=== PATIENT | female | born 1975 | race Caucasian/White ===

== ENCOUNTER 2016-09-02 16:10 | Emergency (ER) | payer BC ==
[2016-09-02 16:22] VITALS: BP 131/85
--- NOTE | 2016-09-02 16:39 | UC ---
Respiratory Complaint HPI - History of Current Complaint Chief Complaint: UCGeneralIllness Stated Complaint: COUGH Time Seen by Provider: 09/02/16 16:29 Hx Obtained From: Patient Hx Last Menstrual Period: 08/31/16 Onset/Duration: Sudden Onset - this morning., Still Present Timing: Constant Severity Initially: Mild Severity Currently: Moderate Character: Cough: Nonproductive Aggravating Factors: Nothing Alleviating Factors: Nothing Associated Signs And Symptoms: Positive: URI, Nasal Congestion. Negative: Dyspnea, Fever, Chills Related History: Seasonal Allergies - in the summer. - Allergies/Home Medications Allergies/Adverse Reactions: Allergies Allergy/AdvReac Type Severity Reaction Status Date / Time Bee Venom Allergy Severe Airway Verified 09/02/16 16:22 Obstruction Penicillins Allergy Mild Rash Verified 09/02/16 16:22 Procaine [From Novocain] Allergy Rash Verified 09/02/16 16:22 Home Medications: Home Medications Menthol (Mouth-Throat) [Ludens Throat Drops] 1 mg MT DAILY 09/02/16 [History Confirmed 09/02/16] PMH/Surg Hx/FS Hx/Imm Hx Endocrine History Of: Reports: Diabetes - CONTROLLED, Thyroid Disease - hypo Respiratory History Of: Reports: Asthma, Bronchitis - Surgical History Surgical History: Yes Surgery Procedure, Year, and Place: tubal ligation. LEFT EYE SX AGE 5 YR. EAR TUBES - Family History Known Family History: Positive: Hypertension, Respiratory Disease - Social History Occupation: Employed Full-time - bus aid Lives: With Family Alcohol Use: None Substance Use Type: None Smoking Status (MU): Never Smoked Tobacco - Immunization History Most Recent Influenza Vaccination: not yet Review of Systems ENT: Sore Throat Respiratory: Cough All Other Systems Reviewed And Are Negative: Yes Physical Exam Triage Information Reviewed: Yes Appearance: No Pain Distress, Well-Nourished, Ill-Appearing Vital Signs: Initial Vital Signs Temp 98.1 F 09/02/16 16:18 Pulse 78 09/02/16 16:18 Resp 16 09/02/16 16:18 BP 131/85 09/02/16 16:18 Pulse Ox 100 09/02/16 16:18 Vital Signs Reviewed: Yes ENT: Positive: Pharynx normal, Nasal congestion, TMs normal Dental: Positive: Gross Decay/Caries @ Neck exam: Normal Respiratory: Positive: Lungs clear Cardiovascular: Positive: RRR, No Murmur Musculoskeletal Exam: Normal Neurological Exam: Normal Psychological Exam: Normal Skin Exam: Normal UC Diagnostic Evaluation - Laboratory O2 Sat by Pulse Oximetry: 100 Respiratory Course/Dx - Differential Dx/Diagnosis Differential Diagnosis/HQI/PQRI: Asthma, Lower Resp Infection, Sinusitis Provider Diagnoses: Acute URI Discharge - Discharge Plan Condition: Stable Disposition: HOME Patient Education Materials: Upper Respiratory Infection (ED), Viral Syndrome ( ED) Additional Instructions: I like Cold-eeze zinc lozenges to help with cold symptoms, especially when started in the first 48 hours.
== END 2016-09-02 17:02 | disposition home or self-care (01) ==
LOC: UCCORT 16:10
DX: J06.9 Acute upper respiratory infection, unspecified (principal); R09.81 Nasal congestion; E03.9 Hypothyroidism, unspecified; J45.909 Unspecified asthma, uncomplicated; Z88.0 Allergy status to penicillin; Z88.5 Allergy status to narcotic agent; Z91.030 Bee allergy status
CPT/HCPCS: 99211; G0463

== ENCOUNTER 2017-05-18 19:21 | Emergency (ER) | payer BC, MEDICAID ==
--- NOTE | 2017-05-18 19:23 | UC ---
UC General HPI - HPI Summary HPI Summary: 42 YEAR OLD FEMALE PRESENTS FOR A REFILL ON HER METFORMIN. THE LAST TIME SHE HAD HER METFORMIN FILLED WAS 2012 AT [facility]. - History of Current Complaint Stated Complaint: BLOOD SUGAR Time Seen by Provider: 05/18/17 19:22 Hx Obtained From: Patient Hx Last Menstrual Period: 08/31/16 Onset/Duration: Sudden Onset Timing: Constant Onset Severity: Moderate Current Severity: Moderate - Allergy/Home Medications Allergies/Adverse Reactions: Allergies Allergy/AdvReac Type Severity Reaction Status Date / Time Bee Venom Allergy Severe Airway Verified 05/18/17 19:39 Obstruction Penicillins Allergy Mild Rash Verified 05/18/17 19:39 Procaine [From Novocain] Allergy Rash Verified 05/18/17 19:39 PMH/Surg Hx/FS Hx/Imm Hx Previously Healthy: Yes Endocrine History: Diabetes - Surgical History Surgical History: Yes Surgery Procedure, Year, and Place: tubal ligation. LEFT EYE SX AGE 5 YR. EAR TUBES - Family History Known Family History: Positive: Hypertension, Respiratory Disease - Social History Alcohol Use: None Substance Use Type: None Smoking Status (MU): Never Smoked Tobacco - Immunization History Most Recent Influenza Vaccination: not yet Review of Systems Constitutional: Negative Skin: Negative Eyes: Negative ENT: Negative Respiratory: Negative Cardiovascular: Negative Gastrointestinal: Negative Genitourinary: Negative Motor: Negative Neurovascular: Negative Musculoskeletal: Negative Neurological: Negative Psychological: Negative All Other Systems Reviewed And Are Negative: Yes Physical Exam Triage Information Reviewed: Yes Eye Exam: Normal ENT Exam: Normal Dental Exam: Normal Neck exam: Normal Neck: Positive: 1 Respiratory Exam: Normal Cardiovascular Exam: Normal Abdominal Exam: Normal Musculoskeletal Exam: Normal Neurological Exam: Normal Psychological Exam: Normal Skin Exam: Normal Course/Dx - Differential Dx - Multi-Symptom Provider Diagnoses: DM2 Discharge - Discharge Plan Condition: Stable Disposition: HOME Patient Education Materials: Type 2 Diabetes Management for Adolescents (ED) Referrals: LUCI Giron [Primary Care Provider] - Additional Instructions: PLEASE GO TO ER FOR REFILL ON MEFORMIN
[2017-05-18 19:37] VITALS: BP 132/94
== END 2017-05-18 19:54 | disposition home or self-care (01) ==
LOC: UCCORT 19:21
DX: E11.9 Type 2 diabetes mellitus without complications (principal); Z79.84 Long term (current) use of oral hypoglycemic drugs
CPT/HCPCS: 99212; G0463

== ENCOUNTER 2017-07-16 19:31 | Emergency (ER) | payer BC, MEDICAID ==
[2017-07-16 19:46] VITALS: BP 141/95
--- NOTE | 2017-07-16 19:54 | UC ---
Respiratory Complaint HPI - HPI Summary HPI Summary: cough x 2 days + chest congestion , nasal congestion , no st, no fever, no chills , no sob - History of Current Complaint Chief Complaint: UCRespiratory Stated Complaint: COUGH Time Seen by Provider: 07/16/17 19:44 Hx Obtained From: Patient Hx Last Menstrual Period: 08/31/16 Onset/Duration: Gradual Onset, Lasting Days - 2, Still Present Timing: Constant Severity Initially: Moderate Severity Currently: Moderate Character: Cough: Nonproductive Aggravating Factors: Deep Breaths Associated Signs And Symptoms: Positive: Wheezing, Nasal Congestion - Allergies/Home Medications Allergies/Adverse Reactions: Allergies Allergy/AdvReac Type Severity Reaction Status Date / Time Bee Venom Allergy Severe Airway Verified 07/16/17 19:47 Obstruction Penicillins Allergy Mild Rash Verified 07/16/17 19:47 Procaine [From Novocain] Allergy Rash Verified 07/16/17 19:47 PMH/Surg Hx/FS Hx/Imm Hx Endocrine History: Diabetes, Thyroid Disease, Hypothyroidism Respiratory History: Asthma - Surgical History Surgical History: Yes Surgery Procedure, Year, and Place: tubal ligation. LEFT EYE SX AGE 5 YR. EAR TUBES - Family History Known Family History: Positive: Hypertension, Respiratory Disease - Social History Alcohol Use: None Substance Use Type: None Smoking Status (MU): Never Smoked Tobacco - Immunization History Most Recent Influenza Vaccination: not yet 2017 Review of Systems Constitutional: Negative Skin: Negative Eyes: Negative ENT: Nasal Discharge Respiratory: Cough Cardiovascular: Negative Gastrointestinal: Negative Is Patient Immunocompromised?: No All Other Systems Reviewed And Are Negative: Yes Physical Exam Triage Information Reviewed: Yes Appearance: Well-Appearing, No Pain Distress, Well-Nourished Vital Signs: Initial Vital Signs Temp 97.4 F 07/16/17 19:45 Pulse 85 07/16/17 19:45 Resp 16 07/16/17 19:45 BP 141/95 07/16/17 19:45 Pulse Ox 95 07/16/17 19:45 Vital Signs Reviewed: Yes Eye Exam: Normal Eyes: Positive: Conjunctiva Clear ENT: Positive: Normal ENT inspection, Hearing grossly normal, Pharynx normal, Nasal congestion Neck: Positive: Supple, Nontender, No Lymphadenopathy Respiratory: Positive: Chest non-tender, Lungs clear, Normal breath sounds Cardiovascular: Positive: RRR, No Murmur, Pulses Normal Skin Exam: Normal UC Diagnostic Evaluation - Laboratory O2 Sat by Pulse Oximetry: 95 Respiratory Course/Dx - Differential Dx/Diagnosis Provider Diagnoses: URI Discharge - Discharge Plan Condition: Stable Disposition: HOME Patient Education Materials: Upper Respiratory Infection (ED) Referrals: LUCI Giron [Primary Care Provider] - If Needed
== END 2017-07-16 19:59 | disposition home or self-care (01) ==
LOC: UCCORT 19:31
DX: J06.9 Acute upper respiratory infection, unspecified (principal); E11.9 Type 2 diabetes mellitus without complications; E03.9 Hypothyroidism, unspecified; J45.909 Unspecified asthma, uncomplicated; Z88.0 Allergy status to penicillin; Z88.7 Allergy status to serum and vaccine; Z91.030 Bee allergy status
CPT/HCPCS: 99211; G0463